=== PATIENT | male | born 1955 | race Caucasian/White ===

== ENCOUNTER 2019-12-15 14:29 | Emergency (ER) | payer OTHER, MEDICARE ==
[~2019-12-15] VITALS: Ht 172.7 cm; Wt 81.6 kg
[~2019-12-15 14:29] MED LIST: DIAZ5VIA3 PO; TRAN10TA GT
--- NOTE | 2019-12-15 14:45 | NUR ---
[id number] FRM HOME FOR NAUSEA AND VOMITING X 2 DAYS. SEEN IN URGENT CARE FOR SAME REASON. PATIENT A/OX4, BREATHING EVEN AND UNLABORED, NO SOB NOTED. NEEDS ATTENDED.
--- NOTE | 2019-12-15 14:56 | NUR ---
DR. MCARTHUR AT BEDSIDE FOR EVAL.
--- NOTE | 2019-12-15 15:24 | NUR ---
Patient a/ox4, breathing even and unlabored, no sob noted. Ambulatory with steady gait. Patient does not wish to proceed with medical care recommended by Dr. Vallecillo. Patient given information related to possible complications, up to and including , which could occur as a result of leaving the hospital at this time. Patient verbalizes understanding of risks involved due to leaving against medical advice. Patient has signed AMA form.
[2019-12-15 15:25] VITALS: BP 133/67
[2019-12-15] MEDS ORDERED: ONDANSETRON HCL/PF - ER 4 MG/2 ML VIAL IV ONE (15:30)
[2019-12-15] MEDS ORDERED: LOPERAMIDE HCL (2 MG CAP) 2 MG CAPSULE PO ONE (15:30)
== END 2019-12-15 15:25 | disposition left against medical advice (07) ==
LOC: ER 14:38
DX: R10.84 Generalized abdominal pain (principal); R11.2 Nausea with vomiting, unspecified; Z98.890 Other specified postprocedural states
CPT/HCPCS: 99283; J2405

== ENCOUNTER 2021-11-17 14:44 | Emergency (ER) | payer BC, MEDICARE, OTHER ==
[~2021-11-17] VITALS: Ht 172.7 cm; Wt 78.5 kg
--- NOTE | 2021-11-17 15:10 | NUR ---
65yrs male came by [facility] s/p fall dowen hit his back and lower extramity 03/13 no differmety
--- NOTE | 2021-11-17 15:33 | NUR ---
to ct scan via [facility] vs
--- NOTE | 2021-11-17 15:54 | NUR ---
MARIELA FRIEND CALLED [phone]
--- NOTE | 2021-11-17 16:40 | NUR ---
yogesh for xray resalt rt arm splent
--- NOTE | 2021-11-17 16:50 | NUR ---
wating for dispo
--- NOTE | 2021-11-17 17:50 | NUR ---
[facility] CALLED ETA 45 MINS PER YUSUF.
--- NOTE | 2021-11-17 17:51 | NUR ---
[place] [id number] [facility] [id number].
--- NOTE | 2021-11-17 17:57 | NUR ---
resting plan to D/C HOME vs stable
--- NOTE | 2021-11-17 18:13 | NUR ---
Dr. ramey at bed side spook with pt update about plan of care
--- NOTE | 2021-11-17 18:25 | NUR ---
d/c instractiongiven to pt and fallow up care
[2021-11-17 18:31] VITALS: BP 112/67
== END 2021-11-17 18:35 | disposition home or self-care (01) ==
LOC: ER 14:47
DX: S52.514A Nondisplaced fracture of right radial styloid process, initial encounter for closed fracture (principal); S33.5XXA Sprain of ligaments of lumbar spine, initial encounter; S40.011A Contusion of right shoulder, initial encounter; I10 Essential (primary) hypertension; F32.A Depression, unspecified; F41.9 Anxiety disorder, unspecified; Z79.899 Other long term (current) drug therapy; W01.0XXA Fall on same level from slipping, tripping and stumbling without subsequent striking against object, initial encounter; Y93.89 Activity, other specified; Y92.89 Other specified places as the place of occurrence of the external cause; Y99.8 Other external cause status
CPT/HCPCS: 29125; 72131; 73030; 73110; 99285; L3763

== ENCOUNTER 2022-02-23 18:13 | Inpatient (IN) | payer BC, MEDICARE, OTHER ==
[~2022-02-23] VITALS: Ht 170.2 cm; Wt 77.6 kg
--- NOTE | 2022-02-23 18:21 | NUR ---
ERNESTINA IVAN "From Home Seizure. Was given total of 10mg Versed IVP." Seizing on arrival HFNR. PLACED ON BED, NOT RESPONDING TO VERBAL AND PAINFUL STIMULI, SEEN AND EXAMINED BY DR ENGLISH.
[2022-02-23] MEDS ORDERED: LORAZEPAM INJ 2 MG/ML VIAL ONE ×2 (18:23→20:10)
[2022-02-23] MEDS ORDERED: LORAZEPAM INJ 2 MG/ML VIAL IVP ONE (18:30)
[2022-02-23] MEDS ORDERED: LEVETIRACETAM (500MG) 1,000 MG in IV NS 0.9% 100 ML IV SCH ×2 (18:30→21:00)
--- NOTE | 2022-02-23 18:34 | NUR ---
COVID SWAB DONE AND SENT TO LAB
--- NOTE | 2022-02-23 18:35 | NUR ---
PATIENT STILL SEIZING ATIVAN 1MG IV GIVEN
[2022-02-23] MEDS ORDERED: LORAZEPAM INJ 2 MG/ML VIAL IV ONE ×2 (19:00→20:30)
[2022-02-23 19:24] LABS: ALANINE AMINOTRANSFERASE 28 U/L (12-78); ALBUMIN 4.7 g/dL (3.4-5.0); ALKALINE PHOSPHATASE 74 U/L (46-116); ASPARTATE AMINOTRANSFERASE 22 U/L (15-37); BILIRUBIN,DIRECT 0.1 mg/dL (0.0-0.2); BILIRUBIN,TOTAL 0.2 mg/dL (0.2-1.0); CALCIUM, SERUM 9.1 mg/dL (8.5-10.1); CARBON DIOXIDE 29 mmol/L (21-32); CHLORIDE 105 mmol/L (98-107); CREATININE 1.3 mg/dL (0.6-1.3); GLUCOSE 134 mg/dL (74-106); POTASSIUM 4.3 mmol/L (3.5-5.1); SODIUM SERUM 142 mmol/L (136-145); TOTAL PROTEIN, SERUM 8.1 g/dL (6.4-8.2); UREA NITROGEN, BLOOD 18 mg/dL (7-18)
[2022-02-23] MEDS ORDERED: IV NS 0.9% 1,000 ML IV ONE (19:30)
--- NOTE | 2022-02-23 19:32 | NUR ---
LACTIC ACID 3.8
[2022-02-23 20:04] LABS: BASOPHILS % (AUTO) 0.4 % (0.0-2.0); HEMATOCRIT 37 % (39-51); HEMOGLOBIN 12.1 g/dL (13.5-17.5); LYMPHOCYTES # (AUTO) 0.9 K/uL (0.8-4.8); LYMPHOCYTES % (AUTO) 17.7 % (20.0-44.0); MEAN CORPUSCULAR HGB CONC 33 g/dl (31.0-36.0); MEAN CORPUSCULAR VOLUME 87 fL (80-96); MONOCYTES # (AUTO) 0.5 K/uL (0.1-1.30); MONOCYTES % (AUTO) 8.8 % (2.0-12.0); NEUTROPHILS # (AUTO) 3.7 K/uL (1.8-8.9); NEUTROPHILS % (AUTO) 72.1 % (43.0-81.0); PLATELET COUNT (AUTO) 159 K/uL (150-450); RED BLOOD CELL COUNT(AUTO) 4.29 MIL/uL (4.5-6.0); WHITE BLOOD COUNT (AUTO) 5.2 K/uL (4.3-11.0)
--- NOTE | 2022-02-23 20:09 | NUR ---
CALLED DR CLARK, LEFT VOICEMAIL
[2022-02-23] MEDS ORDERED: LEVETIRACETAM (500MG) 500 MG/5 ML VIAL IV ONE (20:59)
--- NOTE | 2022-02-23 22:05 | NUR ---
CALLED [facility], PAGED JOCY BOYD
[2022-02-23] MEDS ORDERED: IOHEXOL-300 100 ML VIAL IV ONE (22:07)
[2022-02-23] MEDS ORDERED: phenytoin SODIUM IV 250 MG/5 ML VIAL IV ONE (22:15)
[2022-02-23] MEDS ORDERED: FOSPHENYTOIN SODIUM PE IV ONE (22:30)
[2022-02-23] MEDS ORDERED: NS 0.9% IV ONE (22:30)
[2022-02-23] MEDS ORDERED: PHENYTOIN SODIUM IV 1,000 MG in IV NS 0.9% 100 ML IV ONE (22:30)
[2022-02-23] MEDS ORDERED: ZOLPIDEM TARTRATE 5 MG TABLET PO PRN (23:30)
[2022-02-23] MEDS ORDERED: Z GUARD REMEDY 4 OZ OINT TP PRN (23:30)
[2022-02-23] MEDS ORDERED: ENOXAPARIN SODIUM 40 MG/0.4 ML DISP.SYRIN SQ SCH (23:30)
[2022-02-23] MEDS ORDERED: phenytoin SODIUM IV 500 MG in IV NS 0.9% 50 ML IV ONE (23:30)
[2022-02-23] MEDS ORDERED: IV D5/0.45 NACL 1,000 ML IV PRN (23:30)
[2022-02-23] MEDS ORDERED: ONDANSETRON HCL/PF 4 MG/2 ML VIAL IVP PRN (23:30)
[2022-02-24] VITALS (27 sets, daily range): BP systolic 83–145; BP diastolic 43–80
[2022-02-24] MEDS ORDERED: LACOSAMIDE 200 MG in IV NS 0.9% 100 ML IV ONE ×2
--- NOTE | 2022-02-24 00:59 | NUR ---
REPORT GIVEN TO SCARLET MENDEZ FOR VANESA
[2022-02-24] MEDS ORDERED: phenytoin SODIUM IV 250 MG/5 ML VIAL IV ONE (01:02)
--- NOTE | 2022-02-24 01:12 | NUR ---
PT TRANSPORTED TO UNIT ON GURNEY WITH EMT AND RN AT BEDSIDE W/ ACLS PROTOCOL. NAD NOTED DURING TRANSPORT
[2022-02-24] MEDS: IV NS 0.9% 250 ML IV PRN ×3 (01:18→20:00)
--- NOTE | 2022-02-24 01:20 | NUR ---
NUCLEAR PHYSICIAN RCD PT FROM ER W/DX STATUS EPILEPTICUS; PT IS NON RESPONSIVE MAKING GRUNTING SOUNDS. PUPILS FIXED AT 5 MM NO REACTION NOTED. SBP 80s. TEMP 106.7; JOURNEYMAN PAINTER BOYD W/ORDERS RECEIVED.
[2022-02-24] MEDS ORDERED: IV NS 0.9% 1,000 ML IV ONE (01:30)
[2022-02-24] MEDS ORDERED: ACETAMINOPHEN 650 MG/SUPP.RECT RC STA (01:33)
[2022-02-24] MEDS ORDERED: LEVETIRACETAM (500MG) 500 MG/5 ML VIAL IV ONE (01:35)
--- NOTE | 2022-02-24 01:57 | NUR ---
WALLPAPER SCRAPER UNABLE TO COMPLETE FULL ASSESSMENT PT IS NON RESPONSIVE AND NO FAMILY AVAILABLE
[2022-02-24] MEDS ORDERED: IV LR 1000 ML 1,000 ML IV ONE (02:00)
[2022-02-24] MEDS: ACETAMINOPHEN 650 MG/SUPP.RECT RC PRN (02:17)
--- NOTE | 2022-02-24 02:18 | NUR ---
DRAMA PROFESSOR VIMPAT NOT AVAILABLE AT THIS TIME; ENDORSE TO DAY SHIFT RN/PHARMACY
[2022-02-24] MEDS ORDERED: ACETAMINOPHEN 650 MG/SUPP.RECT RC ONE (02:30)
[2022-02-24 05:18] LABS: BASOPHILS % (AUTO) 0.1 % (0.0-2.0); EOSINOPHILS % (AUTO) 0.1 % (0.0-6.0); HEMATOCRIT 34 % (39-51); HEMOGLOBIN 11.2 g/dL (13.5-17.5); LYMPHOCYTES # (AUTO) 0.9 K/uL (0.8-4.8); LYMPHOCYTES % (AUTO) 6.4 % (20.0-44.0); MEAN CORPUSCULAR HGB CONC 33 g/dl (31.0-36.0); MEAN CORPUSCULAR VOLUME 87 fL (80-96); MONOCYTES # (AUTO) 3.9 K/uL (0.1-1.30); MONOCYTES % (AUTO) 29.2 % (2.0-12.0); NEUTROPHILS # (AUTO) 8.6 K/uL (1.8-8.9); NEUTROPHILS % (AUTO) 64.2 % (43.0-81.0); PLATELET COUNT (AUTO) 121 K/uL (150-450); WHITE BLOOD COUNT (AUTO) 13.4 K/uL (4.3-11.0)
[2022-02-24 05:38] LABS: CREATININE 2.6 mg/dL (0.6-1.3); PHOSPHORUS 1.2 mg/dL (2.5-4.9); POTASSIUM 4.7 mmol/L (3.5-5.1)
[2022-02-24] MEDS ORDERED: LEVETIRACETAM (500MG) 1,000 MG in IV NS 0.9% 100 ML IV SCH (06:00)
--- NOTE | 2022-02-24 06:03 | NUR ---
FREELANCE DATA ENTRY NO SEIZURE ACTIVITY NOTED
--- NOTE | 2022-02-24 06:45 | NUR ---
SHEET MANAGER PT REMAINED WITH HANDS CLENCHED
--- NOTE | 2022-02-24 07:16 | NUR ---
FOOT PIECE ASSEMBLER NON ADMIT VIMPAT PER CORPORATE WEBMASTER BOYD NO MORE SEIZURE ACTIVITY NOTED
[2022-02-24 07:40] LABS: BAND % (MANUAL) 4 % (0.0-5.0); EOSINOPHILS % (MANUAL) 1 % (0-4); LYMPHOCYTES % (MANUAL) 11 % (16-48); MONOCYTES % (MANUAL) 14 % (0-11.0); NEUTROPHILS % (MANUAL) 70 (42-76)
--- NOTE | 2022-02-24 07:47 | NUR ---
ICU/RN PATIENT RECEIVED IN BED, ON 15L O2 NRB SAT 100% ON BEDSIDE MONITOR. PAINTING CATH IN PLACE, PATENT AND DRAINING CLEAR YELLOW URINE. PT NON-RESPONSIVE, PUPILS FIXED, NO GAG REFLEX PRESENT. RIGHT FA AND LEFT FA IV IN PLACE RUNNING D51/2NS AT 75CC/HR. BED LOCKED AND IN LOWEST POSITION, CALL LIGHT WITHIN REACH, 3 SIDE RAILS UP. SAFET MEASURES IN PLACE.
--- NOTE | 2022-02-24 07:54 | NUR ---
ICU/RN COOLING BLANKET ON, RECTAL TEMPERATURE 103.8 AT THIS TIME.
[2022-02-24] MEDS: PHENYTOIN SODIUM IV 100 MG/2ML VIAL IV SCH ×2 (08:08→20:20)
[2022-02-24] MEDS: PANTOPRAZOLE 40 MG VIAL IV SCH (08:08)
[2022-02-24] MEDS ORDERED: ZOSYN IVPB 3.375 G in IV D5W 50ml IV ONE (09:30)
[2022-02-24] MEDS ORDERED: DEXTROSE 50%-WATER 50 ML DISP.SYRIN IV PRN (09:30)
[2022-02-24] MEDS ORDERED: VANCOMYCIN 1.5 GM in IV D5W 500ml IV ONE (10:00)
[2022-02-24] MEDS ORDERED: Sodium Phosphate 15 MMOL in IV NS 0.9% 245 ML IV SCH ×2 (11:00→16:30)
[2022-02-24] MEDS ORDERED: ONDA4TAB11 PO (12:12)
[2022-02-24] MEDS ORDERED: SENN-261 PO (12:12)
[2022-02-24] MEDS ORDERED: TRAN10TA PO ×2 (12:12)
[2022-02-24] MEDS ORDERED: QUET25TA PO (12:12)
[2022-02-24] MEDS ORDERED: SCOP1PAT11 TD (12:12)
[2022-02-24] MEDS ORDERED: DIAZ10TA4 PO (12:12)
[2022-02-24] MEDS ORDERED: DOCU-141 PO (12:12)
[2022-02-24] MEDS ORDERED: OMEP20CA15 PO (12:12)
[2022-02-24] MEDS ORDERED: DIAZ5TAB4 PO (12:12)
[2022-02-24] MEDS ORDERED: HYDR-4303 PO (12:12)
[2022-02-24] MEDS ORDERED: BICA50TA8 PO (12:12)
[2022-02-24] MEDS ORDERED: PSYL1PAC8 PO (12:12)
[2022-02-24] MEDS ORDERED: BISA5TAB10 PO (12:12)
[2022-02-24] MEDS ORDERED: GABA300C PO (12:12)
[2022-02-24] MEDS ORDERED: DUTA1CPM4 PO (12:12)
[2022-02-24] MEDS ORDERED: CLON1TAB12 PO (12:12)
[2022-02-24] MEDS ORDERED: PRIM50TA27 PO (12:12)
[2022-02-24] MEDS ORDERED: PIOG30TA10 PO (12:12)
[2022-02-24] MEDS ORDERED: ATOR10TA PO (12:12)
[2022-02-24] MEDS: BLOOD SUGAR DIAGNOSTIC 1 EACH STRIP VI SCH ×3 (12:18→21:58)
--- NOTE | 2022-02-24 12:32 | NUR ---
ICU/RN PER SAMUEL MATA TO GIVE REGULAR INSULIN PER SLIDING SCALE EVEN WITH NPO STATUS.
[2022-02-24] MEDS: PIPERACILLIN /TAZOBACTAM 3.375 G in IV D5W 100 ML IV SCH ×2 (12:35→20:00)
[2022-02-24] MEDS: INSULIN REGULAR, HUMAN 100 UNIT/ML 3 ML VIAL SQ PRN ×2 (12:36→17:27)
[2022-02-24] MEDS: MORPHINE SULFATE INJ 2 MG/ML DISP.SYRIN IV PRN (13:05)
[2022-02-24] MEDS: Sodium Bicarbonate 50 MEQ in IV NS 0.9% 1,000 ML IV SCH (14:16)
[2022-02-24] MEDS ORDERED: LEVETIRACETAM (500MG) 1,000 MG in IV NS 0.9% 100 ML IV ONE (14:30)
[2022-02-24] MEDS ORDERED: LACOSAMIDE 100 MG in IV NS 0.9% 50 ML IV ONE (14:30)
--- NOTE | 2022-02-24 14:35 | NUR ---
ICU/RN RECTAL TEMP 99.4F. COOLING BLANKET REMOVED.
[2022-02-24 15:35] LABS: BILIRUBIN,URINE NEGATIVE (NEGATIVE); COLOR,URINE YELLOW (YELLOW); LEUKOCYTE ESTERASE ,URINE NEGATIVE (NEGATIVE); NITRITE, URINE NEGATIVE (NEGATIVE); PH,URINE 5.5 (5.0-8.0); PROTEIN,URINE 30 mg/dl (NEGATIVE); UGLUCOSE 250 MG/DL mg/dL (NEGATIVE); UROBILINOGEN,URINE 0.2 EU/dL (0.2)
[2022-02-24 15:53] LABS: BACTERIA,URINE None seen /HPF (None Seen); RBC,URINE 81-100 /HPF (0-2); SQUAMOUS EPITHELIAL CELL,UR 0-2 /HPF (None Seen); URIC ACID CRYSTALS,URINE Moderate /HPF (None Seen); URINE AMORPHOUS URATE Moderate /HPF (None Seen); WBC,URINE 0-2 /HPF (0-3)
[2022-02-24 15:54] LABS: FINE GRANULAR CASTS,URINE Few /LPF (None Seen)
--- NOTE | 2022-02-24 19:05 | NUR ---
SKIP PITMAN 0600 VIMPAT DOSE NOT DELIVERED PER EDGE GRINDER THEY ARE ALREADY CLOSED AND NO MEDICATIONS CAN BE TAKEN OUT AND THEY WILL REOPEN AT 0600. CALLED PHARMACY NO RESPONSE.
[2022-02-24] MEDS: LACOSAMIDE 100 MG in IV NS 0.9% 50 ML IV SCH (19:07)
--- NOTE | 2022-02-24 19:30 | NUR ---
PATHOLOGY COLLECTOR RCD PT W/DRY BLOOD TO LIPS AND TONGUE RENDERED ORAL CARE; PT NOTED BITING DOWN ON SWABS/SYED
[2022-02-24] MEDS: LEVETIRACETAM (500MG) 1,000 MG in IV NS 0.9% 100 ML IV SCH (20:15)
[2022-02-24] MEDS: ENOXAPARIN SODIUM 40 MG/0.4 ML DISP.SYRIN SQ SCH (20:20)
--- NOTE | 2022-02-24 20:28 | NUR ---
PATIENTS TRANSPORTER JAYCOB [phone] STATES SHE IS THE NIECE
[2022-02-24] MEDS ORDERED: ENOXAPARIN SODIUM 40 MG/0.4 ML DISP.SYRIN SQ SCH (21:00)
--- NOTE | 2022-02-24 22:00 | NUR ---
HIMS MANAGER PT NOTED POSTURING
[2022-02-24] MEDS: *INSULIN REGULAR(HUMULIN R)HUM 100 UNIT/ML VIAL SQ PRN (22:01)
[2022-02-25] VITALS (21 sets, daily range): BP systolic 105–150; BP diastolic 63–93
[2022-02-25] MEDS: Sodium Bicarbonate 50 MEQ in IV NS 0.9% 1,000 ML IV SCH ×2
[2022-02-25] MEDS: PIPERACILLIN /TAZOBACTAM 3.375 G in IV D5W 100 ML IV SCH ×3 (04:00→20:58)
[2022-02-25 04:41] LABS: BASOPHILS % (AUTO) 0.1 % (0.0-2.0)
[2022-02-25 05:05] LABS: CALCIUM, SERUM 7.6 mg/dL (8.5-10.1); CREATININE 1.7 mg/dL (0.6-1.3); MAGNESIUM 2.1 mg/dL (1.8-2.4); PHOSPHORUS 3.7 mg/dL (2.5-4.9); POTASSIUM 2.9 mmol/L (3.5-5.1)
[2022-02-25 05:21] LABS: HEMATOCRIT 36 % (39-51); HEMOGLOBIN 11.7 g/dL (13.5-17.5); LYMPHOCYTES # (AUTO) 1.3 K/uL (0.8-4.8); LYMPHOCYTES % (AUTO) 15.7 % (20.0-44.0); MEAN CORPUSCULAR HGB CONC 33 g/dl (31.0-36.0); MEAN CORPUSCULAR VOLUME 88 fL (80-96); MONOCYTES # (AUTO) 2.2 K/uL (0.1-1.30); MONOCYTES % (AUTO) 26.1 % (2.0-12.0); NEUTROPHILS # (AUTO) 4.8 K/uL (1.8-8.9); NEUTROPHILS % (AUTO) 58.1 % (43.0-81.0); RED BLOOD CELL COUNT(AUTO) 4.11 MIL/uL (4.5-6.0); WHITE BLOOD COUNT (AUTO) 8.3 K/uL (4.3-11.0)
[2022-02-25 05:33] LABS: PLATELET COUNT (AUTO) 18 K/uL (150-450)
[2022-02-25 05:55] LABS: BAND % (MANUAL) 2 % (0.0-5.0); LYMPHOCYTES % (MANUAL) 21 % (16-48)
[2022-02-25 05:56] LABS: MONOCYTES % (MANUAL) 18 % (0-11.0); NEUTROPHILS % (MANUAL) 59 (42-76)
--- NOTE | 2022-02-25 06:01 | NUR ---
NUCLEAR CONTROL ROOM OPERATOR CALLED PHARMACY FOR VIMPAT
[2022-02-25] MEDS: LACOSAMIDE 100 MG in IV NS 0.9% 50 ML IV SCH ×2 (06:20→20:32)
[2022-02-25] MEDS: POTASSIUM CL. PREMIX PERIPHER. 50 ML IV SCH ×5 (07:48→12:10)
[2022-02-25] MEDS: BLOOD SUGAR DIAGNOSTIC 1 EACH STRIP VI SCH ×4 (08:05→21:45)
--- NOTE | 2022-02-25 08:10 | NUR ---
DR. KASPER SEEN PT. WITH NO NEW ORDER NOTED.
[2022-02-25] MEDS: LEVETIRACETAM (500MG) 1,000 MG in IV NS 0.9% 100 ML IV SCH ×2 (08:14→20:32)
[2022-02-25] MEDS: PANTOPRAZOLE 40 MG VIAL IV SCH (09:16)
[2022-02-25] MEDS: PHENYTOIN SODIUM IV 100 MG/2ML VIAL IV SCH ×2 (09:16→20:52)
[2022-02-25] MEDS: Potassium Chloride 20 MEQ in IV NS 0.9% 1,000 ML IV SCH ×2 (11:01→20:56)
[2022-02-25] MEDS: IV NS 0.9% 250 ML IV PRN (12:35)
[2022-02-25] MEDS: MORPHINE SULFATE INJ 2 MG/ML DISP.SYRIN IV PRN (13:05)
[2022-02-25] MEDS ORDERED: VANCOMYCIN 1.25 GM in IV D5W 250 ML IV SCH ×2 (14:00→22:00)
--- NOTE | 2022-02-25 16:03 | NUR ---
TRANSFERRED PT. TO TELE UNIT -RM 328 PER PROTOCOL, PT. NO ACUTE DISTRESS NOTED, VS STABLE. BEDSIDE REPORT GIVEN TO EMPERATRIZ-RN.
--- NOTE | 2022-02-25 16:10 | NUR ---
CVIR TECHINTERFACE ANALYST NOTE: PATIENT TRANSFERRED FROM ICU. RECEIVED REPORT FROM VOCAL ARTIST LYN. PATIENT RECEIVED IN BED, NON-RESPONSIVE. ON 2L/MIN O2, SAT 100%, BREATHING EVEN AND UNLABORED. BP 146/83; HR OF 84, TELE MONITOR READS SINUS RHYTHM, WITH 1ST DEGREE AV BLOCK, ORAL TEMP OF 99 F, RESP OF 18 BREATHS/MIN. PAINTING CATH IN PLACE, PATENT AND DRAINING CLEAR YELLOW URINE. IV ON LEFT FA #20G SALINE LOCKED, PATENT AND FLUSHING WELL; PADDY MIDLINE #18G WITH NS + 20 MEQ KCL RUNNING AT 100ML/HR, PATENT AND RUNNING WELL. BOTH IV SITES HAVE NO S/S OF PHLEBITIS OR INFILTRATION. SAFETY, PRESSURE ULCER AND FALL PRECAUTIONS IN PLACE: BED LOCKED AND IN LOWEST POSITION, CALL LIGHT WITHIN REACH, 3 SIDE RAILS UP, WILL TURN AND REPOSITION Q2H. WILL CONTINUE TO MONITOR PT. FOR ANY CHANGES..
[2022-02-25 16:33] LABS: CALCIUM, SERUM 7.9 mg/dL (8.5-10.1); CREATININE 1.3 mg/dL (0.6-1.3); POTASSIUM 3.5 mmol/L (3.5-5.1)
[2022-02-25] MEDS: INSULIN REGULAR, HUMAN 100 UNIT/ML 3 ML VIAL SQ PRN (18:51)
--- NOTE | 2022-02-25 19:15 | NUR ---
RUBBER STAMP ASSEMBLER CLOSING NOTE: PATIENT REMAINS IN BED, NON-RESPONSIVE. ON 2L/MIN O2, NO S/S OF RESPIRATORY DISTRESS. TELE MONITOR READS SINUS RHYTHM, WITH 1ST DEGREE AV BLOCK WITH HR OF 80 BPM, PAINTING CATH IN PLACE, PATENT AND DRAINING CLEAR YELLOW URINE WITH OUTPUT OF 450 ML THIS SHIFT. IV ON LEFT FA #20G SALINE LOCKED, PATENT AND FLUSHING WELL; PADDY MIDLINE #18G WITH NS + 20 MEQ KCL RUNNING AT 100ML/HR, PATENT AND RUNNING WELL. BOTH IV SITES HAVE NO S/S OF PHLEBITIS OR INFILTRATION. SAFETY, PRESSURE ULCER AND FALL PRECAUTIONS MAINTAINED: BED LOCKED AND IN LOWEST POSITION, CALL LIGHT WITHIN REACH, 3 SIDE RAILS UP, TURNED AND REPOSITIONED Q2H. WILL ENDORSE CONTINUITY OF CARE TO LENS MAKER RN.
--- NOTE | 2022-02-25 19:40 | NUR ---
PURCHASE ORDER CHECKER NOTES RECEIVED ON BED A/O X1.NONVERBAL,O2 IN USED AT 2L/NC,PAINTING CATH IN PLACE DRAINING YELLOWISH OUTPUT.WITH PADDY MIDLINE FOR MEDS.NPO STATUS,DNR/DNI,WILL CONTINUE TO MONITOR STATUS.
[2022-02-25] MEDS: ENOXAPARIN SODIUM 40 MG/0.4 ML DISP.SYRIN SQ SCH (20:52)
[2022-02-25] MEDS: *INSULIN REGULAR(HUMULIN R)HUM 100 UNIT/ML VIAL SQ PRN (21:49)
--- NOTE | 2022-02-25 22:00 | NUR ---
COTTON CLASSER NOTES ACCU-CHECK BLOOD SUGAR CHECK 138,2 UNITS HELD,NPO STATUS, ON IVF.REPOSITION TO LEFT SIDE
[2022-02-26] VITALS: BP 148/92
[2022-02-26] MEDS: MORPHINE SULFATE INJ 2 MG/ML DISP.SYRIN IV PRN ×3 (03:55→20:57)
--- NOTE | 2022-02-26 03:55 | NUR ---
DIRECTOR OF BUSINESS SYSTEMS NOTES NOTED FACIAL GRIMACE,RESTLESS,MOANS,MORPHINE 2MG IV GIVEN ORDERED FOR PAIN.
[2022-02-26 04:00] VITALS: BP 157/85
[2022-02-26] MEDS: PIPERACILLIN /TAZOBACTAM 3.375 G in IV D5W 100 ML IV SCH (04:59)
--- NOTE | 2022-02-26 05:30 | NUR ---
LABORATORY MONITOR NOTES ACCU-CHECK BLOOD SUGAR CHECK 139,COVERED WITH HUMULIN R 2 UNITS PER SLIDING SCALE.
[2022-02-26] MEDS: BLOOD SUGAR DIAGNOSTIC 1 EACH STRIP VI SCH ×4 (05:37→21:24)
[2022-02-26] MEDS: INSULIN REGULAR, HUMAN 100 UNIT/ML 3 ML VIAL SQ PRN (05:39)
--- NOTE | 2022-02-26 06:39 | NUR ---
TRAFFIC AND TRANSPORT PLANNER NOTES PAIN MANAGEMENT EFFECTIVE,NO SEIZURE ACTIVITY NOTED.REPOSITION PER PROTOCOL,DNR/DNI STATUS POSSIBLE DISCHARGE TO HOME ON HOSPICE CARE.
[2022-02-26 06:55] LABS: BASOPHILS % (AUTO) 0.1 % (0.0-2.0); HEMATOCRIT 31 % (39-51); HEMOGLOBIN 10.5 g/dL (13.5-17.5); LYMPHOCYTES # (AUTO) 0.9 K/uL (0.8-4.8); LYMPHOCYTES % (AUTO) 12.8 % (20.0-44.0); MEAN CORPUSCULAR HGB CONC 34 g/dl (31.0-36.0); MEAN CORPUSCULAR VOLUME 86 fL (80-96); MONOCYTES % (AUTO) 13.8 % (2.0-12.0); NEUTROPHILS # (AUTO) 5.2 K/uL (1.8-8.9); NEUTROPHILS % (AUTO) 73.3 % (43.0-81.0); RED BLOOD CELL COUNT(AUTO) 3.59 MIL/uL (4.5-6.0); WHITE BLOOD COUNT (AUTO) 7.1 K/uL (4.3-11.0)
[2022-02-26 07:02] LABS: PLATELET COUNT (AUTO) 22 K/uL (150-450)
[2022-02-26 07:19] LABS: MAGNESIUM 2.1 mg/dL (1.8-2.4); PHOSPHORUS 2.1 mg/dL (2.5-4.9)
--- NOTE | 2022-02-26 07:30 | NUR ---
RN OPENING NOTE PATIENT IS ASLEEP IN BED, OBTUNDED. BREATHING UNLABORED AND NOT IN ANY FORM OF DISTRESS. SINUS RHYTHM ON ELECTRICAL TESTER. WITH LEFT FOREARM SALINE LOCK INTACT AND PATENT. WITH RIGHT UPPER ARM MIDLINE INTACT INFUSING WITH NS + 20 MEQ KCL AT 100 ML/HR. BED IS LOCKED IN LOWEST POSITION, 3 SIDE RAILS UP, CALL LIGHT WITHIN REACH. WILL CONTINUE TO MONITOR THROUGHOUT SHIFT.
[2022-02-26 08:00] VITALS: BP 141/94
--- NOTE | 2022-02-26 08:02 | NUR ---
WOUND CARE CONSULT: PT PRESENTS WITH SACRAL DEEP TISSUE INJURY IN EVOLUTION WITH BLISTERS NOTED TO BILATERAL BUTTOCKS, PRESENT ON ADMISSION. TREATMENT ORDERS UPDATED AND DISCUSSED WITH NURSING STAFF. MD IN AGREEMENT WITH PLAN OF CARE. Addendum: 02/26/22 at 0803 by ANGELA LAWLER WNDNU Amended: Links added.
[2022-02-26] MEDS: LACOSAMIDE 100 MG in IV NS 0.9% 50 ML IV SCH ×2 (08:29→20:48)
[2022-02-26] MEDS: LEVETIRACETAM (500MG) 1,000 MG in IV NS 0.9% 100 ML IV SCH ×2 (08:30→20:04)
[2022-02-26] MEDS: Potassium Chloride 20 MEQ in IV NS 0.9% 1,000 ML IV SCH ×2 (08:30→15:45)
[2022-02-26 09:45] LABS: BASOPHILS % (MANUAL) 0 % (0.0-2.0); EOSINOPHILS % (MANUAL) 0 % (0-4); LYMPHOCYTES % (MANUAL) 11 % (16-48); MONOCYTES % (MANUAL) 14 % (0-11.0)
[2022-02-26 09:46] LABS: BAND % (MANUAL) 2 % (0.0-5.0); NEUTROPHILS % (MANUAL) 73 (42-76)
[2022-02-26] MEDS: PHENYTOIN SODIUM IV 100 MG/2ML VIAL IV SCH ×2 (09:55→20:57)
[2022-02-26] MEDS: PANTOPRAZOLE 40 MG VIAL IV SCH (09:56)
[2022-02-26] MEDS ORDERED: Sodium Phosphate 30 MMOL in IV NS 0.9% 250 ML IV SCH (10:00)
[2022-02-26 11:58] LABS: CREATININE 1.2 mg/dL (0.6-1.3); POTASSIUM 3.4 mmol/L (3.5-5.1)
[2022-02-26] MEDS: *INSULIN REGULAR(HUMULIN R)HUM 100 UNIT/ML VIAL SQ PRN ×2 (12:35→21:24)
[2022-02-26 15:36] VITALS: BP 150/77
[2022-02-26] MEDS: ACETAMINOPHEN 650 MG/SUPP.RECT RC PRN (15:44)
--- NOTE | 2022-02-26 16:00 | NUR ---
RN NOTE PATIENT IS BEING PROCESSED FOR DISCHARGE TODAY. HOWEVER, PATIENT'S FAMILY REQUESTED FOR PATIENT TO STAY ANOTHER NIGHT IN THE HOSPITAL THEY FEEL VERSED AND OTHER MEDICATIONS HELP IN MAKING THE PATIENT MORE AWAKE. INFORMED DR. ANNE ABOUT IT AND AGREED FOR PATIENT TO BE DISCHARGED TO HOME TOMORROW.
--- NOTE | 2022-02-26 17:00 | NUR ---
RN NOTE HEMODIALYSIS DONE. OUTPUT IS 1L. PATIENT STABLE AND NOT IN ANY FORM OF DISTRESS. Addendum: 02/26/22 at 1857 by MANPREET GARNER RN WRONG NOTE FOR PATIENT. DISREGARD ENTRY.
--- NOTE | 2022-02-26 18:57 | NUR ---
RN CLOSING NOTE PATIENT IS RESTING COMFORTABLY IN BED AND REMAINED STABLE THROUGHOUT SHIFT. OBTUNDED, NON VERBAL. WITH OXYGEN VIA NASAL CANNULA AT 2L/MIN, O2 SATURATION AT 99%. WITH RIGHT UPPER ARM MIDLINE INTACT AND INFUSING WITH NS + 20 MEQ KCL AT 100 CC/MIN. PAINTING CATHETER INTACT. BREATHING UNLABORED AND NOT IN ANY FORM OF DISTRESS. BED IS LOCKED IN LOWEST POSITION, 3 SIDE RAILS UP, CALL LIGHT WITHIN REACH. WILL ENDORSE TO ENGINEER SPECIALIST NURSE.
--- NOTE | 2022-02-26 19:30 | NUR ---
RN OPENING NOTE PATIENT IS RESTING COMFORTABLY IN BED. PT ABLE TO MUMBLE SINGLE WORDS.WITH OXYGEN VIA NASAL CANNULA AT 2L/MIN, O2 SATURATION AT 99%. WITH RIGHT UPPER ARM MIDLINE INTACT AND INFUSING WITH NS + 20 MEQ KCL AT 100 CC/MIN. PAINTING CATHETER INTACT. BREATHING UNLABORED AND NOT IN ANY FORM OF DISTRESS. BED IS LOCKED IN LOWEST POSITION, 3 SIDE RAILS UP, CALL LIGHT WITHIN REACH. WILL CONTINUE TO MONITOR.
[2022-02-26 20:00] VITALS: BP 153/87
--- NOTE | 2022-02-26 20:00 | NUR ---
MANAGER CONTINUOUS IMPROVEMENT NOTES PT GRIMACING AND YELLING. PRN MORPHINE GIVEN TOLERATED WELL.
[2022-02-26] MEDS: ENOXAPARIN SODIUM 40 MG/0.4 ML DISP.SYRIN SQ SCH (21:00)
[2022-02-27] VITALS: BP 136/85
[2022-02-27] MEDS ORDERED: LORAZEPAM INJ 2 MG/ML VIAL IV PRN
--- NOTE | 2022-02-27 00:09 | NUR ---
ASSURANCE ASSOCIATE NOTES NOTED PT VERY AGITATED KEEPS TRYING TO REMOVE LINES. RECEIVED NEW ORDER FOR ATIVAN 0.5 MG Q6HR PRN. NOTED AND CARRIED OUT.
--- NOTE | 2022-02-27 00:30 | NUR ---
COMPUTER ASSEMBLER NOTES PRN ATIVAN GIVEN FOR AGITATION. TOLERATED WELL.
[2022-02-27 04:00] VITALS: BP 160/91
[2022-02-27] MEDS: MORPHINE SULFATE INJ 2 MG/ML DISP.SYRIN IV PRN ×2 (06:04→14:06)
--- NOTE | 2022-02-27 06:10 | NUR ---
PERSONAL LINES INSURANCE ADVISOR NOTES PRN MORPHINE GIVEN TOLERATED WELL.WILL CONTINUE TO MONITOR.
[2022-02-27] MEDS: BLOOD SUGAR DIAGNOSTIC 1 EACH STRIP VI SCH ×2 (06:31→12:07)
[2022-02-27] MEDS: *INSULIN REGULAR(HUMULIN R)HUM 100 UNIT/ML VIAL SQ PRN (06:32)
--- NOTE | 2022-02-27 06:40 | NUR ---
RN CLOSING NOTE PATIENT IS RESTING COMFORTABLY IN BED. PT ABLE TO MUMBLE SINGLE WORDS PT MUCH MORE VERBAL SINCE BEGINNING OF THE SHIFT CAN ANSWER SIMPLE YES NO QUESTIONS. PT DID HAVE MULTIPLE EPISODES OF AGITATION PRN MEDICATIONS PROVIDED AND TOLERATED WELL. PT WITH OXYGEN VIA NASAL CANNULA AT 2L/MIN, O2 SATURATION AT 99%. WITH RIGHT UPPER ARM MIDLINE INTACT AND INFUSING WITH NS + 20 MEQ KCL AT 100 CC/MIN. PAINTING CATHETER INTACT. BREATHING UNLABORED AND NOT IN ANY FORM OF DISTRESS. BED IS LOCKED IN LOWEST POSITION, 3 SIDE RAILS UP, CALL LIGHT WITHIN REACH. WILL ENDORSE CARE TODAY SHIFT NURSE.
--- NOTE | 2022-02-27 07:10 | NUR ---
BEHAVIORAL PSYCHOLOGIST OPENING NOTES RECEIVED PATIENT IN BED RESTING, A/Ox1, ON 2L OF O2. MUMBLING WORDS, NO S/S OF RESPIRATORY DISTRESS. PATIENT IS ON TELE MONITORING SINUS RHYTHM AT THIS TIME HR 78, NO S/S OR C/O OF CARDIAC DISTRESS. IV ACCESS PADDY MIDLINE RUNNING NS + 20 MEQ KCl @100 ML/HR. INTACT AND PATENT. PATIENT HAS FC DRAINING CLEAR YELLOW COLORED URINE. SKIN IS INTACT. SAFETY MEASURES IN PLACE: BED IN LOWEST POSITION AND LOCKED, HOB ELEVATED, SIDE RAILS UP x2, BED ALARM ON AND CALL LIGHT WITHIN REACH. WILL CONTINUE TO MONITOR.
[2022-02-27 08:00] VITALS: BP 152/88
[2022-02-27] MEDS: LACOSAMIDE 100 MG in IV NS 0.9% 50 ML IV SCH ×2 (08:53→09:42)
[2022-02-27] MEDS: LEVETIRACETAM (500MG) 1,000 MG in IV NS 0.9% 100 ML IV SCH (09:02)
[2022-02-27] MEDS: PHENYTOIN SODIUM IV 100 MG/2ML VIAL IV SCH (09:52)
[2022-02-27] MEDS: Potassium Chloride 20 MEQ in IV NS 0.9% 1,000 ML IV SCH (09:52)
[2022-02-27] MEDS: PANTOPRAZOLE 40 MG VIAL IV SCH (09:52)
[2022-02-27 13:49] VITALS: BP 156/83
--- NOTE | 2022-02-27 17:00 | NUR ---
PATIENT SCHEDULING MANAGER NOTES PATIENT DISCHARGED HOME WITH HOSPICE. A/Ox1 MUMBLES WORDS. ON 2L OF O2, NO S/S OF RESPIRATORY DISTRESS, NO S/S OF CARDIAC DISTRESS. IV ACCESS PADDY MIDLINE REMOVED, PRESSURE DRESSING APPLIED. PATIENT STABLE, NO S/S OF SEIZURES PRESENT AT THIS TIME. FC REMOVED OUTPUT: 1500 ML. DISCHARGE INSTRUCTIONS AND HEALTH EDUCATION GIVEN TO FAMILY AT BEDSIDES. FAMILY VERBALIZED UNDERSTANDING, PATIENT UNABLE TO COMPREHEND. DISCHARGE INSTRUCTIONS AND BELONGINGS LIST SIGNED BY FAMILY, COPIED AND FILED INTO CHART. PATIENT LEFT VIA AMBULANCE @1640 ACCOMPANIED BY 2 concrete batcher. CHARGE NURSE AND MD AWARE OF DISCHARGE.
== END 2022-02-27 16:30 | disposition hospice, home (50) | DRG 871 ==
LOC: ER 18:31 → ICU 02-24 00:15 → TELE 02-25 15:58 → MED 02-27 11:43
PROVIDERS: ADMIT Nurse Practitioner Family; ATTEND Internal Medicine
PROC: 05HB33Z Insertion of Infusion Device into Right Basilic Vein, Percutaneous Approach (ICD-10-PCS; principal; 2022-02-24)
DX: A41.9 Sepsis, unspecified organism (principal); G93.41 Metabolic encephalopathy; N17.0 Acute kidney failure with tubular necrosis; C79.51 Secondary malignant neoplasm of bone; E87.2 Acidosis; G40.901 Epilepsy, unspecified, not intractable, with status epilepticus; Z20.822 Contact with and (suspected) exposure to COVID-19; I10 Essential (primary) hypertension; Z51.5 Encounter for palliative care; Z66 Do not resuscitate; F32.A Depression, unspecified; F41.9 Anxiety disorder, unspecified; Z91.018 Allergy to other foods; Z79.899 Other long term (current) drug therapy; D63.8 Anemia in other chronic diseases classified elsewhere; C61 Malignant neoplasm of prostate; Z79.84 Long term (current) use of oral hypoglycemic drugs; E11.9 Type 2 diabetes mellitus without complications; E87.6 Hypokalemia
CPT/HCPCS: 36415; 70450-TC; 70460-TC; 71045-TC; 76770-TC; 80048-TC; 80076-TC; 80202-TC; 81001; 82570-TC; 82962-TC; 83605-TC; 83735-TC; 84100-TC; 84300-TC; 85025-TC; 85730-TC; 87040-TC; 87081-TC; 94799-TC; 95819-TC; A9563; C9113; C9803; G0378; J1165; J1650; J1815; J1953; J2060; J2270; J2405; J2543; J3370; J3480; J3490; J7030; J7050; J7060; J7120; Q9967